=== PATIENT | female | born 1980 | race Caucasian/White ===

== ENCOUNTER 2017-08-11 09:32 | Emergency (ER) | payer MEDICARE, OTHER ==
[2017-08-11 09:39] VITALS: BP 120/90
--- NOTE | 2017-08-11 09:50 | ED Physician Documentation ---
PD HPI URI - Stated complaint Stated Complaint: CHEST CONGESTION/BACK PX - Chief complaint Chief Complaint: Resp - History obtained from History obtained from: Patient - History of Present Illness Timing - onset: How many days ago (3-4) Timing duration: Days (3-4) Timing details: Abrupt onset, Still present Associated symptoms: Fever, Chills, Sweats, Nasal congestion, Sore throat, Dry cough, Dyspnea. No: Hemoptysis, NVD Contributing factors: No: Sick contact, Travel, Immunocompromised, COPD / asthma Similar symptoms before: Has not had sx before Recently seen: Not recently seen Review of Systems Constitutional: reports: Fever, Chills, Myalgias, Fatigue Nose: reports: Rhinorrhea / runny nose, Congestion Throat: denies: Sore throat Cardiac: reports: Chest pain / pressure (with coughing) Respiratory: reports: Dyspnea, Cough, Wheezing GI: reports: Nausea. denies: Abdominal Pain, Vomiting, Diarrhea Skin: denies: Rash, Lesions Neurologic: reports: Generalized weakness. denies: Focal weakness, Numbness, Near syncope, Altered mental status, Headache PD PAST MEDICAL HISTORY - Past Medical History Past Medical History: Yes Neuro: Headache/migraine CERTIFIED NUCLEAR MEDICINE TECHNOLOGIST: None HEENT: None - Past Surgical History Past Surgical History: Yes /CERTIFIED NUCLEAR MEDICINE TECHNOLOGIST: section, LEEP (Cervical surgery) - Present Medications Home Medications: Ambulatory Orders Medication Instructions Recorded Confirmed Albuterol Sulf [Ventolin Hfa 1 - 2 puffs INH Q4HR PRN #1 inhaler 08/11/17 Inhaler] Benzonatate [Tessalon] 100 mg PO TID PRN #25 capsule 08/11/17 Dexamethasone [Decadron] 4 mg PO DAILY #5 tablet 08/11/17 guaiFENesin/CODEINE [Robitussin AC] 10 ml PO Q6H PRN #240 ml 08/11/17 - Allergies Allergies/Adverse Reactions: Allergies Allergy/AdvReac Type Severity Reaction Status Date / Time Latex, Natural Rubber Allergy Intermediate Rash Verified 08/11/17 09:39 - Social History Does the pt smoke?: Yes Smoking Status: Current every day smoker Does the pt drink ETOH?: No Does the pt have substance abuse?: No - Immunizations Immunizations are current?: Yes - POLST Patient has POLST: No PD ED PE NORMAL - Vitals Vital signs reviewed: Yes - General General: Alert and oriented X 3, No acute distress (but seems uncomfortable with coughing and coughs with attempts at deep breathing. Has some wheezing. ), Well developed/nourished - HEENT HEENT: Ears normal, Pharynx benign - Neck Neck: Supple, no meningeal sign, No adenopathy - Cardiac Cardiac: RRR (tachy but regular), No murmur - Respiratory Respiratory: No: Clear bilaterally (no wet sounds but having diffuse exp wheezing) - Abdomen Abdomen: Soft, Non tender - Back Back: No CVA TTP - Derm Derm: Normal color, Warm and dry, No rash - Neuro Neuro: Alert and oriented X 3, No motor deficit, Normal speech Results - Vitals Vitals: Oxygen O2 Source Room air PD MEDICAL DECISION MAKING - ED course Complexity details: considered differential, d/w patient Departure - Departure Disposition: 01 Home, Self Care Clinical Impression: Upper respiratory infection Qualifiers: URI type: unspecified URI Qualified Code(s): J06.9 - Acute upper respiratory infection, unspecified Condition: Stable Record reviewed to determine appropriate education?: Yes Instructions: ED URI Viral W Wheezing Prescriptions: Albuterol Sulf [Ventolin Hfa Inhaler] 1 - 2 puffs INH Q4HR PRN #1 inhaler PRN Reason: Shortness Of Air/Wheezing Benzonatate [Tessalon] 100 mg PO TID PRN #25 capsule PRN Reason: Cough Dexamethasone [Decadron] 4 mg PO DAILY #5 tablet guaiFENesin/CODEINE [Robitussin AC] 10 ml PO Q6H PRN #240 ml PRN Reason: Cough Comments: This sounds like a viral illness and should take about 5-7 days for its course. To decrease symptoms, use albuterol inhaler 2 puffs 4 times a day and extra times if needed. Decadron is a steroid taken daily for the next 5 days to decrease inflammation. For the cough itself he can use codeine cough medicine and benzoin 08. Drink lots of fluids and use Tylenol or ibuprofen if needed for fevers and other aches. Recheck if not improving over the next few more days. Discharge Date/Time: 08/11/17 10:33
[2017-08-11] MEDS ORDERED: DEXAMETHASONE 10 MG/ML VIAL PO STA (10:19)
[2017-08-11] MEDS ORDERED: BENZONATATE 100 MG CAPSULE PO STA (10:19)
== END 2017-08-11 10:33 | disposition home or self-care (01) ==
LOC: ED 09:32
DX: J06.9 Acute upper respiratory infection, unspecified (principal); F17.200 Nicotine dependence, unspecified, uncomplicated
CPT/HCPCS: 99283; A9270

== ENCOUNTER 2018-12-27 12:36 | Emergency (ER) | payer MEDICARE, OTHER ==
--- NOTE | 2018-12-27 12:49 | ED Physician Documentation ---
PD HPI ABD PAIN - Stated complaint Stated Complaint: ABD PX/VOMITING - Chief complaint Chief Complaint: Abd Pain - History obtained from History obtained from: Patient - History of Present Illness Timing - onset: How many months ago (6) Timing - duration: Months (6) Timing - details: Gradual onset, Still present, Waxing and waning Quality: Aching, Pain, Other (feeling of fullness with eating and nausea. Feels worse with eating.) Location: RUQ, Epigastric Radiation: Upper back Improved by: No: Laying still Worsened by: Eating, Palpation. No: Breathing Associated symptoms: Nausea, Loss of appetite, Weight loss (70 lbs over 6 months without intentional dieting.). No: Fever, Vomiting, Diarrhea, Melena Similar symptoms before: Has not had sx before Recently seen: Not recently seen Review of Systems Constitutional: denies: Fever, Chills, Myalgias Nose: denies: Rhinorrhea / runny nose, Congestion Throat: reports: Sore throat (for 2 weeks) Respiratory: reports: Cough (for 2 weeks) GI: reports: Abdominal Pain, Nausea. denies: Vomiting, Diarrhea, Bloody / black stool : denies: Dysuria, Frequency Neurologic: reports: Generalized weakness. denies: Focal weakness, Numbness Endocrine: reports: Weight loss PD PAST MEDICAL HISTORY - Past Medical History Cardiovascular: None Respiratory: None Neuro: None Endocrine/Autoimmune: None GI: None CHIEF RISK OFFICER: None HEENT: None - Past Surgical History Past Surgical History: Yes /CHIEF RISK OFFICER: section, LEEP (Cervical surgery) - Present Medications Home Medications: Ambulatory Orders Medication Instructions Recorded Confirmed Famotidine 20 mg PO DAILY #30 tablet 12/27/18 Lidocaine Viscous 2% [Xylocaine 5 ml PO Q4H PRN #100 ml 12/27/18 Viscous 2%] Ondansetron Odt [Zofran] 4 mg TL Q6H PRN #30 tablet 12/27/18 Sucralfate [Carafate] 1 gm PO TID #30 tablet 12/27/18 - Allergies Allergies/Adverse Reactions: Allergies Allergy/AdvReac Type Severity Reaction Status Date / Time Latex, Natural Rubber Allergy Intermediate Rash Verified 12/27/18 12:44 - Living Situation Living Arrangement: reports: At home - Social History Does the pt smoke?: Yes Smoking Status: Current every day smoker Does the pt drink ETOH?: No Does the pt have substance abuse?: No - Immunizations Immunizations are current?: Yes - POLST Patient has POLST: No PD ED PE NORMAL - Vitals Vital signs reviewed: Yes - General General: Alert and oriented X 3, No acute distress, Well developed/nourished - HEENT HEENT: Moist mucous membranes, Pharynx benign - Neck Neck: Supple, no meningeal sign, No adenopathy - Cardiac Cardiac: RRR, No murmur - Respiratory Respiratory: Clear bilaterally - Abdomen Abdomen: Soft, Non distended, No organomegaly, Other (tender without guarding epigastric area and RUQ. No percussion tenderness. ) - Back Back: No CVA TTP - Derm Derm: Normal color, Warm and dry - Extremities Extremities: No tenderness to palpate, Normal ROM s pain, No edema, No calf tenderness / cord - Neuro Neuro: Alert and oriented X 3, No motor deficit, Normal speech Results - Vitals Vitals: Vital Signs - 24 hr 12/27/18 12/27/18 12:41 15:44 Temperature 36.0 C L Heart Rate 95 74 Respiratory 14 18 Rate Blood Pressure 146/110 H 141/84 H O2 Saturation 96 96 Oxygen O2 Source Room air - Labs Labs: Laboratory Tests 12/27/18 12/27/18 12/27/18 13:49 13:49 13:49 WBC 8.1 RBC 4.68 Hgb 14.5 Hct 42.4 MCV 90.7 MCH 31.0 MCHC 34.1 RDW 13.2 Plt Count 210 MPV 8.8 Neut # (Auto) 5.2 Lymph # (Auto) 2.1 [place]ack[place]ord # (Auto) 0.6 Eos # (Auto) 0.1 Baso # (Auto) 0.0 Absolute Nucleated RBC 0.00 Nucleated RBC % 0.0 ESR 6 Sodium 136 Potassium 3.9 Chloride 105 Carbon Dioxide 20 L Anion Gap 11.0 BUN 10 Creatinine 0.7 Estimated GFR (MDRD) 93 Glucose 101 H Calcium 8.9 Magnesium 2.0 Total Bilirubin 0.5 AST 15 ALT 14 Alkaline Phosphatase 60 Total Protein 6.8 Albumin 3.8 Globulin 3.0 Albumin/Globulin Ratio 1.3 Lipase 43 Infectious Shackelford Assay 12/27/18 13:49 WBC RBC Hgb Hct MCV MCH MCHC RDW Plt Count MPV Neut # (Auto) Lymph # (Auto) [place] # (Auto) Eos # (Auto) Baso # (Auto) Absolute Nucleated RBC Nucleated RBC % ESR Sodium Potassium Chloride Carbon Dioxide Anion Gap BUN Creatinine Estimated GFR (MDRD) Glucose Calcium Magnesium Total Bilirubin AST ALT Alkaline Phosphatase Total Protein Albumin Globulin Albumin/Globulin Ratio Lipase Infectious Sh[place]ord Assay NEGATIVE - Rads (name of study) chest and abd CT Radiology: Prelim report reviewed (no acute process), See rad report PD MEDICAL DECISION MAKING - ED course Complexity details: reviewed results (no noted abnormalities on the labs/CT. Presume symptoms consistent with gastritis/ulcer), considered differential (symptoms seem likely gastritis/ulcer but consider gallbladder. With recent weight loss, fatigue and cough, could also consider tumor, etc. Opted on CT to better eval overall abd and include chest, rather than just limited to GB, such as with U/S. ), d/w patient Departure - Departure Disposition: 01 Home, Self Care Clinical Impression: Weight loss, Cough Abdominal pain Qualifiers: Abdominal location: upper abdomen, unspecified Qualified Code(s): R10.10 - Upper abdominal pain, unspecified Gastritis Qualifiers: Gastritis type: unspecified gastritis Chronicity: acute Gastritis bleeding: without bleeding Qualified Code(s): K29.00 - Acute gastritis without bleeding Condition: Stable Record reviewed to determine appropriate education?: Yes Instructions: ED Abdominal Pain Unkn Cause, ED PUD Vs Gastritis Prescriptions: Famotidine 20 mg PO DAILY #30 tablet Lidocaine Viscous 2% [Xylocaine Viscous 2%] 5 ml PO Q4H PRN #100 ml PRN Reason: Pain Ondansetron Odt [Zofran] 4 mg TL Q6H PRN #30 tablet PRN Reason: Nausea / Vomiting Sucralfate [Carafate] 1 gm PO TID #30 tablet Comments: Your CT scans and blood tests appear normal. Your symptoms are suggestive of a gastritis or ulcer and typically these do not really show up on a CT scan. We will treat you for presumed gastritis with acid reducing medicine and medication to also coat the stomach. Refer to the prescriptions. Use antacid such as Maalox or Mylanta and can add some lidocaine if needed for discomfort. Ondansetron if needed for nausea. Follow-up with your primary care next week, call for an appointment. Return if worsening symptoms. Discharge Date/Time: 12/27/18 15:44
[2018-12-27] MEDS ORDERED: LIDOCAINE VISCOUS 2% 15 ML UDC MM STA (13:15)
[2018-12-27] MEDS ORDERED: SODIUM CHLORIDE 0.9% 1,000 ML IV ONE (13:15)
[2018-12-27] MEDS ORDERED: ONDANSETRON 4 MG/2 ML VIAL IVP STA (13:15)
[2018-12-27] MEDS ORDERED: MAG HYDROX/AL HYDROX/SIMETH 30 ML UDC PO STA (13:16)
[2018-12-27] MEDS ORDERED: FAMOTIDINE 20 MG/2 ML VIAL IVP STA (13:16)
[2018-12-27 13:59] LABS: BASOPHILS % (AUTO) 0.4 %; EOSINOPHILS # (AUTO) 0.1 10^3/uL (0.0-0.7); EOSINOPHILS % (AUTO) 1.3 %; HGB - HEMOGLOBIN 14.5 g/dL (12.0-16.0); LYMPHOCYTES # (AUTO) 2.1 10^3/uL (1.5-3.5); LYMPHOCYTES % (AUTO) 26.4 %; MEAN CORPUSCULAR HGB CONC 34.1 g/dL (32.0-36.0); MEAN CORPUSCULAR VOLUME 90.7 fL (81.0-99.0); MEAN PLATELET VOLUME 8.8 fL (7.9-10.8); MONOCYTES # (AUTO) 0.6 10^3/uL (0.0-1.0); MONOCYTES % (AUTO) 7.2 %; NEUTROPHILS # (AUTO) 5.2 10^3/uL (1.5-6.6); NEUTROPHILS % (AUTO) 64.7 %; PLT - PLATELET COUNT 210 10^3/uL (130-450); RED BLOOD COUNT 4.68 10^6/uL (4.20-5.40); RED CELL DISTRIBUTION WIDTH 13.2 % (12.0-15.0); WHITE BLOOD COUNT 8.1 x10^3/uL (4.8-10.8)
[2018-12-27] MEDS ORDERED: IOVERSOL 320 100 ML VIAL IVP ONE ×2 (14:11→16:40)
[2018-12-27 14:13] LABS: ALBUMIN 3.8 g/dL (3.2-5.5); ALBUMIN/GLOBULIN RATIO 1.3 (1.0-2.2); BILIRUBIN,TOTAL 0.5 mg/dL (0.2-1.0); CALCIUM 8.9 mg/dL (8.5-10.3); CREATININE 0.7 mg/dL (0.4-1.0); TOTAL PROTEIN 6.8 g/dL (6.7-8.2)
--- NOTE | 2018-12-27 15:07 | CT Report ---
Reason: upper abd pain and cough for months; wt loss Procedure Date: 12/27/2018 Accession Number: [id number] / [id number] Procedure: CT - Abdomen/Pelvis W CPT Code: FULL RESULT: EXAM: CT ABDOMEN AND PELVIS EXAM DATE: 12/27/2018 02:47 PM. CLINICAL HISTORY: Upper abd pain and cough for months; wt loss. COMPARISONS: None. TECHNIQUE: Routine helical CT imaging was performed through the abdomen and pelvis. IV contrast: . Enteric contrast: No. Reconstructions: Coronal and sagittal. In accordance with CT protocol optimization, one or more of the following dose reduction techniques were utilized for this exam: automated exposure control, adjustment of mA and/or KV based on patient size, or use of iterative reconstructive technique. FINDINGS: Lung Bases: There is mild bilateral dependent atelectasis and scarring. Liver: Normal. No masses. Gallbladder/Bile Ducts: Unremarkable. Spleen: Normal. Pancreas: Normal. Adrenal Glands: Normal. Kidneys: Cortical scarring in the left mid kidney. Peritoneal Cavity/Bowel: Normal. No free fluid, free air or adenopathy. No masses or acute inflammatory process. The appendix is well visualized and normal. Pelvic Organs: Normal. The bladder and visualized pelvic organs are within normal limits. Vasculature: No aneurysms or other significant abnormality. Bones: No significant abnormality. Other: None. IMPRESSION: Normal appendix. Normal-appearing uterus and ovaries. No acute abdominal pathology. [facility]
--- NOTE | 2018-12-27 15:13 | CT Report ---
Reason: upper abd pain and cough for months Procedure Date: 12/27/2018 Accession Number: [id number] / [id number] Procedure: CT - CHEST W CPT Code: FULL RESULT: EXAM: CT CHEST EXAM DATE: 12/27/2018 02:47 PM. CLINICAL HISTORY: Upper abd pain and cough for months. COMPARISONS: None. TECHNIQUE: Routine helical CT imaging was performed through the chest. IV contrast: None. Reconstructions: Coronal and sagittal. In accordance with CT protocol optimization, one or more of the following dose reduction techniques were utilized for this exam: automated exposure control, adjustment of mA and/or KV based on patient size, or use of iterative reconstructive technique. FINDINGS: Lungs/Pleura: Mild bilateral dependent atelectasis and scarring noted. No nodules, bronchial thickening, consolidation, or edema. Pulmonary vasculature is normal. No pericardial or pleural effusion. No pneumothorax. Mediastinum: Normal. No adenopathy or masses. The heart and great vessels are normal. Bones: Unremarkable. Visualized Abdomen: Unremarkable. Other: None. IMPRESSION: No concerning findings in the chest. [facility]
[2018-12-27 15:45] VITALS: BP 141/84
== END 2018-12-27 15:44 | disposition home or self-care (01) ==
LOC: ED 12:36
DX: R10.11 Right upper quadrant pain (principal); R10.13 Epigastric pain; R10.811 Right upper quadrant abdominal tenderness; R10.816 Epigastric abdominal tenderness; R63.4 Abnormal weight loss; R11.0 Nausea; R63.0 Anorexia; R05 Cough; J02.9 Acute pharyngitis, unspecified; F17.200 Nicotine dependence, unspecified, uncomplicated
CPT/HCPCS: 36415; 71260; 74177; 80053; 83690; 83735; 85025; 85651; 86308; 96361; 96374; 99283; A9270; Q9967